=== PATIENT | female | born 1935 | race Caucasian/White ===

== ENCOUNTER 2017-11-14 09:47 | Inpatient (IN) ==
[2017-11-14] MEDS ORDERED: Diphtheria/Tetanus/Pertussis Vaccine Inj 0.5 ML Syringe IM ONE (09:54)
[2017-11-14] MEDS ORDERED: Morphine Inj 4 MG/ML Vial ONE (09:55)
[2017-11-14 10:12] LABS: Baso # (Auto) 0.1 th/mm3 (0.0-0.2); Baso % (Auto) 1.2 % (0.0-2.0); Eos # (Auto) 0.2 th/mm3 (0.0-0.4); Eos % (Auto) 3.2 % (0.0-4.0); Hematocrit 37.1 % (35.0-46.0); Hemoglobin 12.5 gm/dL (11.6-15.3); Lymph # (Auto) 1.7 th/mm3 (1.0-4.8); Lymph % (Auto) 22.8 % (9.0-44.0); Mean Corpuscular HGB Conc 33.7 % (32.0-36.0); Mean Corpuscular Hemoglobin 32.7 pg (27.0-34.0); Mean Platelet Volume 8.7 fL (7.0-11.0); Mono # (Auto) 0.5 th/mm3 (0.0-0.9); Neut % (Auto) 65.8 % (16.0-70.0); Platelet Count 214 th/mm3 (150-450); Red Blood Count 3.83 mil/mm3 (4.00-5.30); Red Cell Distribution Width 13.8 % (11.6-17.2); White Blood Count 7.5 th/mm3 (4.0-11.0)
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
[2017-11-14 10:20] LABS: Activated Partial Thrombo Time 21.6 sec (24.3-30.1); Prothrombin Time 10.4 sec (9.8-11.6)
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
[2017-11-14 10:26] LABS: Anion Gap 8 meq/L (5-15); Blood Urea Nitrogen 21 mg/dL (7-18); Calcium 8.6 mg/dL (8.5-10.1); Carbon Dioxide 26.3 meq/L (21.0-32.0); Chloride 110 meq/L (98-107); Glomerular Filtration Rate 55 mL/min (>89); Glucose,Random 122 mg/dL (74-106); Potassium 4.5 meq/L (3.5-5.1); Sodium 144 meq/L (136-145)
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
[2017-11-14] MEDS ORDERED: ceFAZolin 2 GM Premix Inj 2 GM/50 ML PIGGYBACK IV.SIG ONE (10:44)
[2017-11-14] MEDS ORDERED: Lidocaine 1%/Epinephrine 1:100,000 Inj 50 ML Vial INFILTRATN ONE (10:52)
[2017-11-14] MEDS ORDERED: Clindamycin 600 mg/NS Premix 600 MG/50 ML PIGGYBACK IV.SIG ONE (10:53)
[2017-11-14] MEDS ORDERED: Gentamicin Inj 80 MG in Sodium Chlor 0.9% Inj 100 ML IV.SIG ONE (10:53)
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
[2017-11-14] MEDS ORDERED: Morphine Inj 4 MG/ML Vial IV.PUSH PRN (11:58)
[2017-11-14] MEDS ORDERED: Bisacodyl 10 MG Supp RECTAL PRN (11:58)
[2017-11-14] MEDS ORDERED: Post-op Orders (for Pharmacy) OTHER STA (11:58)
[2017-11-14] MEDS ORDERED: Phenylephrine/NS 1000 MCG/10ML Syringe IV.PUSH ONE (12:00)
[2017-11-14] MEDS ORDERED: Lidocaine PF 1% Inj 5 ML Syringe INFILTRATN ONE (12:00)
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
[2017-11-14] MEDS ORDERED: Sugammadex Inj 200 MG/2 ML Vial IV.PUSH ONE (12:04)
[2017-11-14] MEDS ORDERED: *Meperidine Inj 25 MG/ML Vial PERIprocedural Use ONLY ONE (12:31)
[2017-11-14] MEDS ORDERED: fentaNYL Citrate Inj 100 MCG/2 ML Ampul ONE ×2 (12:34→12:35)
[2017-11-14] MEDS ORDERED: *morphine SULFATE 10 MG/ML PERIprocedure ONLY ONE (13:03)
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
[2017-11-14] MEDS: Calcium/Vitamin D 250/125 MG Tablet PO SCH ×2 (13:56→17:35)
[2017-11-14] MEDS: Pantoprazole Inj 40 MG Vial IV.PUSH SCH (13:57)
[2017-11-14] MEDS ORDERED: *Ondansetron Inj 4 MG/2 ML Vial PERIprocedural Use ONLY ONE (14:03)
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
[2017-11-14] MEDS: ceFAZolin Inj 2,000 MG in Sodium Chlor 0.9% Inj 80 ML IV.SIG SCH (20:33)
[2017-11-14] MEDS ORDERED: Docusate Sodium 100 MG Capsule PO SCH (21:00)
[2017-11-14] MEDS: Senna/Docusate Sodium 8.6/50 MG Tablet PO SCH (21:14)
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
[2017-11-15] MEDS: ceFAZolin Inj 2,000 MG in Sodium Chlor 0.9% Inj 80 ML IV.SIG SCH ×3 (03:34→20:57)
[2017-11-15] MEDS: Chlorhexidine Gluconate 2% 1 Pack (2 Cloths) TOPICAL SCH (03:35)
[2017-11-15] MEDS ORDERED: Chlorhexidine Gluconate 2% 1 Pack (2 Cloths) TOPICAL PRN (04:00)
--- NOTE | 2017-11-15 05:28 | XR ---
EXAM DATE: 11/15/2017 5:04 AM EDT AGE/SEX: 89 years / Female INDICATIONS: Short of breath. CLINICAL DATA: This is the patient's subsequent encounter. Patient reports that signs and symptoms h ave been present for 1 week and indicates a pain score of Nonresponsive. MEDICAL/SURGICAL HISTORY: Non-responsive. Non-responsive. COMPARISON: [facility] – [place] CHEST W CONTRAST, 11/14/2017. . FINDINGS: There is patchy left basilar atelectasis. Cardiomegaly and aortic calcification. Degenerative changes of the spine. CONCLUSION: Left basilar atelectasis. Electronically signed by: Konstantin Jerez MD 11/15/2017 5:26 AM EDT
[2017-11-15 08:06] LABS: Baso % (Auto) 0.2 % (0.0-2.0); Hematocrit 30.4 % (35.0-46.0); Hemoglobin 10.2 gm/dL (11.6-15.3); Lymph # (Auto) 0.7 th/mm3 (1.0-4.8); Lymph % (Auto) 4.8 % (9.0-44.0); Mean Corpuscular HGB Conc 33.6 % (32.0-36.0); Mean Corpuscular Hemoglobin 33.1 pg (27.0-34.0); Mean Corpuscular Volume 98.5 fL (80.0-100.0); Mean Platelet Volume 8.8 fL (7.0-11.0); Neut # (Auto) 12.4 th/mm3 (1.8-7.7); Platelet Count 159 th/mm3 (150-450); Red Blood Count 3.08 mil/mm3 (4.00-5.30); Red Cell Distribution Width 13.7 % (11.6-17.2); White Blood Count 14.2 th/mm3 (4.0-11.0)
--- NOTE | 2017-11-15 08:10 | P.PNOP ---
Subjective Interval history: left Distal tib/fib fxs with left 5th MT fx s/p I&D and exfix right scapula fx doing well. states pain and warmth. but controlled. Physical Exam Vital signs: Vital Signs 11/14/17 10:32 11/14/17 12:27 11/14/17 12:45 Temperature 97.7 F Pulse Rate 96 H 82 Respiratory Rate 16 16 Blood Pressure 116/77 150/67 H Pulse Oximetry 97 96 99 11/14/17 13:00 11/14/17 13:15 11/14/17 13:30 Temperature Pulse Rate 76 68 60 Respiratory Rate 16 16 16 Blood Pressure 159/67 H 147/65 H 147/68 H Pulse Oximetry 99 99 99 11/14/17 14:00 11/14/17 15:52 11/14/17 15:53 Temperature Pulse Rate 74 58 L Respiratory Rate 16 17 Blood Pressure 143/67 H Pulse Oximetry 99 98 11/14/17 19:53 11/14/17 20:00 11/14/17 22:00 Temperature 99.3 F Pulse Rate 68 74 Respiratory Rate 20 Blood Pressure 156/68 H Pulse Oximetry 98 98 11/14/17 23:00 11/15/17 00:00 11/15/17 02:00 Temperature 98.6 F Pulse Rate 56 L 58 L Respiratory Rate 17 Blood Pressure 167/72 H Pulse Oximetry 98 95 11/15/17 03:00 Temperature Pulse Rate Respiratory Rate Blood Pressure Pulse Oximetry 96 Intake & Output 11/14/17 11/15/17 11/15/17 18:59 06:59 18:59 Intake Total 1300 / 1300 100 / 100 Output Total 720 / 720 Balance 580 / 580 100 / 100 Intake: IV 100 / 100 Ancef Inj 2,000 MG In NS Inj 80 100 / 100 ML @ 200 mls/hr IV.SIG Q8H GEORGE Rx#:[id number] Oral 0 / 0 Anesthesia Amount 1300 / 1300 Output: Estimated Blood Loss 20 / 20 Urine Amount (Catheter) 700 / 700 500 500 / 500 Indwelling Urethral Catheter 200 / 200 Narrative: RUE: +sling. nvi LLE: +ankle exfix. mild bloody drainage of dressings. nvi. - Urinary Catheter Management Indwelling Urethral Catheter Cath placed during this visit: no 500 Cath placed during this visit: yes Reason for continuing: Hourly intake/output Insertion date: 11/14/17 Results - Labs CBC & Chem 7: 11/14/17 09:50 11/14/17 09:50 Laboratory Results - last 24 hr 11/14/17 11/14/17 11/14/17 09:33 09:50 09:50 WBC 7.5 RBC 3.83 L Hgb 12.5 POC Hgb (Calc) Hct 37.1 POC Hct MCV 97.0 MCH 32.7 MCHC 33.7 RDW 13.8 Plt Count 214 MPV 8.7 Neut % (Auto) 65.8 Lymph % (Auto) 22.8 [place] % (Auto) 7.0 Eos % (Auto) 3.2 Baso % (Auto) 1.2 Neut # (Auto) 5.0 Lymph # (Auto) 1.7 [place] # (Auto) 0.5 Eos # (Auto) 0.2 Baso # (Auto) 0.1 WBC Differential . Differential Comment Auto diff final PT 10.4 INR 1.0 APTT 21.6 L POC Sodium Sodium POC Potassium Potassium POC Chloride Chloride Carbon Dioxide Anion Gap POC BUN BUN Creatinine POC Creatinine Estimated GFR POC Glucose Random Glucose Calcium Nasal Screen MRSA (PCR) Serum Alcohol Blood Type Antibody Screen MTS Gel Crossmatch See Detail 11/14/17 11/14/17 11/14/17 09:50 09:50 09:50 WBC RBC Hgb POC Hgb (Calc) 11.9 Hct POC Hct 35.0 MCV MCH MCHC RDW Plt Count MPV Neut % (Auto) Lymph % (Auto) [place] % (Auto) Eos % (Auto) Baso % (Auto) Neut # (Auto) Lymph # (Auto) [place] # (Auto) Eos # (Auto) Baso # (Auto) WBC Differential Differential Comment PT INR APTT POC Sodium 141 Sodium 144 POC Potassium 4.4 Potassium 4.5 POC Chloride ND Chloride 110 H Carbon Dioxide 26.3 Anion Gap 8 POC BUN ND BUN 21 H Creatinine 0.89 POC Creatinine 0.8 Estimated GFR 55 L POC Glucose 127 H Random Glucose 122 H Calcium 8.6 Nasal Screen MRSA (PCR) Serum Alcohol Less than 3 Blood Type O Positive Antibody Screen Negative MTS Gel Crossmatch 11/14/17 11/14/17 09:50 14:45 WBC RBC Hgb POC Hgb (Calc) Hct POC Hct MCV MCH MCHC RDW Plt Count MPV Neut % (Auto) Lymph % (Auto) [place] % (Auto) Eos % (Auto) Baso % (Auto) Neut # (Auto) Lymph # (Auto) [place] # (Auto) Eos # (Auto) Baso # (Auto) WBC Differential Differential Comment PT INR APTT POC Sodium Sodium POC Potassium Potassium POC Chloride Chloride Carbon Dioxide Anion Gap POC BUN BUN Creatinine POC Creatinine Estimated GFR POC Glucose Random Glucose Calcium Nasal Screen MRSA (PCR) Not detected Serum Alcohol Blood Type Antibody Screen MTS Gel Crossmatch See Detail - Imaging Impressions Ankle CT 11/14/17 00:00 CONCLUSION: 1. External fixation of distal tibia and fibula fractures. Major fracture fragments are in near-anatomic alignment but there is irregularity, step-off, extensive comminution and a large cavity of the distal tibia articular surface. 2. Scattered gas bubbles in the anterior soft tissues and within the sinus Tarsi. Ankle X-Ray 11/14/17 00:00 CONCLUSION: Limited images as detailed above. Chest X-Ray 11/14/17 09:49 CONCLUSION: No acute cardiopulmonary process Pelvis X-Ray 11/14/17 09:49 CONCLUSION: Negative single view trauma study. Shoulder X-Ray 11/14/17 09:53 CONCLUSION: Negative single view trauma study. Tibia/Fibula X-Ray 11/14/17 09:53 CONCLUSION: 1. Multiple fibular fractures with an extensively comminuted fracture of the distal tibial metadiaphysis. 2. There also appears to be a comminuted fracture involving the fifth metatarsal recommend dedicated views of the foot for further evaluation. Abdomen/Pelvis CT 11/14/17 09:54 CONCLUSION: 1. No evidence of acute visceral injury. 2. Moderate hepatic steatosis with rounded low density lesion along the right lobe of the liver. Visualization is suboptimal secondary to motion and streak artifact. This may represent a cyst. Chest CT 11/14/17 09:54 CONCLUSION: 1. Mildly comminuted fracture of the right clavicle. 2. Nondisplaced fracture of the right posterior sixth rib. 3. No evidence of acute visceral injury. 4. Mild apparent atelectasis in the right lung with no pneumothorax. Lumbar Spine CT 11/14/17 09:54 CONCLUSION: 1. . Patient has 4 non ribbed lumbar-type vertebral bodies with complete sacralization of L5. For the purposes of this study, the sacralized vertebral body was labeled L5. 2. Multilevel degenerative disc disease with vacuum disc phenomenon at T12-L1, L1-2 and L4-5. 3. Grade 1 anterolisthesis of L4 on 5 appears to be due to facet degeneration and hypertrophy. 4. Mild to moderate spinal stenosis at L3-4 and L4-5 with no obvious central nerve root compromise. Neural foramina appear to be adequate throughout. 5. No fracture. Thoracic Spine CT 11/14/17 09:54 CONCLUSION: 1. No evidence of acute compression fracture of the thoracic spine. 2. Acute comminuted fracture involving the right scapula. 3. Mild degenerative changes throughout the thoracic spine. Cervical Spine CT 11/14/17 09:55 CONCLUSION: 1. No acute fracture or prevertebral soft tissue swelling. 2. Grade I anterolisthesis of C6 in relation to C7 and C7 in relation to T1. 3. Diffuse cervical spondylosis. 4. Moderate bilateral foraminal narrowing at C3-4, C4-C5, C5-6 and C6-7. 5. Mild spinal stenosis at C5-6. 6. Mild scoliosis of the cervical spine. 7. Rotation of C1 in relation to C2 which is likely related to the patient's positioning. Clinical correlation is recommended. Head CT 11/14/17 09:55 CONCLUSION: 1. No acute intracranial abnormality. . Chest X-Ray 11/15/17 11:17 CONCLUSION: Left basilar atelectasis. Assessment and Plan - Assessment and Plan 1) Right Scapula Fx - nonop 2) Left Distal Tibia/Fibula Fxs s/p exfix 3) Left 5th MT Fx LLE: -NWB -elevate -ice -will take dressing down tomorrow to inspect skin -npo after MN in case skin is ready for surgery. will likely not be ready till later next week -will begin pin care after remove dressing tomorrow -toradol 15mg Q8H -DVT prophylaxis RUE: -sling at all times -NWB
[2017-11-15 08:23] LABS: Carbon Dioxide 27.1 meq/L (21.0-32.0); Potassium 3.9 meq/L (3.5-5.1)
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
[2017-11-15] MEDS: Senna/Docusate Sodium 8.6/50 MG Tablet PO SCH ×2 (09:29→20:57)
[2017-11-15] MEDS ORDERED: CALCIUM CARBONATE 500 MG PO SCH (09:30)
[2017-11-15] MEDS: Calcium/Vitamin D 250/125 MG Tablet PO SCH ×3 (09:30→18:08)
[2017-11-15] MEDS: Ketorolac Inj 30 MG/ML (IVP) Vial IV.PUSH SCH ×2 (09:41→17:18)
[2017-11-15] MEDS: Pantoprazole Inj 40 MG Vial IV.PUSH SCH (12:07)
[2017-11-15] MEDS: Enoxaparin Inj 30 MG/0.3 ML Syringe SQ SCH (12:08)
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
[2017-11-16] MEDS: Ketorolac Inj 30 MG/ML (IVP) Vial IV.PUSH SCH ×3 (00:40→17:11)
[2017-11-16] MEDS: ceFAZolin Inj 2,000 MG in Sodium Chlor 0.9% Inj 80 ML IV.SIG SCH ×2 (04:22→12:30)
[2017-11-16 04:36] LABS: Baso % (Auto) 0.4 % (0.0-2.0); Calcium 8.4 mg/dL (8.5-10.1); Carbon Dioxide 30.9 meq/L (21.0-32.0); Eos # (Auto) 0.1 th/mm3 (0.0-0.4); Eos % (Auto) 0.8 % (0.0-4.0); Hematocrit 25.8 % (35.0-46.0); Hemoglobin 8.7 gm/dL (11.6-15.3); Lymph # (Auto) 1.3 th/mm3 (1.0-4.8); Lymph % (Auto) 16.3 % (9.0-44.0); Mean Corpuscular HGB Conc 33.6 % (32.0-36.0); Mean Corpuscular Hemoglobin 33.3 pg (27.0-34.0); Mean Platelet Volume 8.5 fL (7.0-11.0); Mono # (Auto) 0.5 th/mm3 (0.0-0.9); Neut # (Auto) 6.3 th/mm3 (1.8-7.7); Neut % (Auto) 76.5 % (16.0-70.0); Platelet Count 143 th/mm3 (150-450); Potassium 3.6 meq/L (3.5-5.1); Red Blood Count 2.61 mil/mm3 (4.00-5.30); Red Cell Distribution Width 13.7 % (11.6-17.2); White Blood Count 8.2 th/mm3 (4.0-11.0)
--- NOTE | 2017-11-16 06:53 | P.PNOP ---
Subjective Interval history: s/p left distal tibfib fx with exfix s/p right scapula fx patient states increased pain in ankle. states her "general health is declining ". worried about a decubitus ulcer Physical Exam Vital signs: Vital Signs 11/15/17 07:00 11/15/17 08:00 11/15/17 10:00 Temperature 98.9 F Pulse Rate 64 60 Respiratory Rate Blood Pressure 176/72 H Pulse Oximetry 98 98 11/15/17 11:33 11/15/17 11:34 11/15/17 12:00 Temperature 98.2 F Pulse Rate 51 L Respiratory Rate 20 20 Blood Pressure 143/63 H Pulse Oximetry 98 11/15/17 12:33 11/15/17 14:00 11/15/17 15:58 Temperature Pulse Rate 53 L Respiratory Rate Blood Pressure Pulse Oximetry 100 93 L 11/15/17 16:00 11/15/17 18:09 11/15/17 20:00 Temperature 98.1 F 97.7 F 99 F Pulse Rate 72 58 L 66 Respiratory Rate 15 22 Blood Pressure 137/68 176/73 H 183/72 H Pulse Oximetry 93 L 95 93 L 11/15/17 22:06 11/16/17 00:00 11/16/17 02:37 Temperature 98.2 F Pulse Rate 55 L Respiratory Rate 20 15 Blood Pressure 157/67 H Pulse Oximetry 97 94 L 11/16/17 04:00 Temperature 97.7 F Pulse Rate 52 L Respiratory Rate 20 Blood Pressure 148/67 H Pulse Oximetry 95 Intake & Output 11/15/17 11/15/17 11/16/17 06:59 18:59 06:59 Intake Total 200 / 200 1670 / 1670 320 / 320 Output Total 900 / 900 675 / 675 1000 / 1000 Balance -700 / -700 995 / 995 -680 / -680 Weight 71 kg Intake: IV 200 / 200 1100 / 1100 100 / 100 LR 1000 mL Inj 1,000 ML @ 50 1000 / 1000 mls/hr IV.CONT .Q20H GEORGE Rx#: [id number] Ancef Inj 2,000 MG In NS Inj 80 200 / 200 100 / 100 100 / 100 ML @ 200 mls/hr IV.SIG Q8H GEORGE Rx#:[id number] Oral 570 / 570 220 / 220 Output: Urine 1000 / 1000 Urine Amount (Catheter) 900 / 900 675 / 675 Indwelling Urethral Catheter 900 / 900 675 / 675 Other: Date of Last Bowel Movement 11/13/17 11/14/17 11/14/17 # Bowel Movements 0 0 Narrative: LLE: 2+ swelling of ankle. lateral incision healing well. pin sites bloody. nvi RUE: +sling. nvi - Urinary Catheter Management Indwelling Urethral Catheter Cath placed during this visit: no 500 Cath placed during this visit: yes Reason for continuing: Hourly intake/output Insertion date: 11/14/17 Results - Labs CBC & Chem 7: 11/16/17 04:01 11/16/17 04:01 Laboratory Results - last 24 hr 11/15/17 11/15/17 11/16/17 06:56 06:56 04:01 WBC 14.2 H D 8.2 RBC 3.08 L 2.61 L Hgb 10.2 L D 8.7 L Hct 30.4 L 25.8 L MCV 98.5 99.0 MCH 33.1 33.3 MCHC 33.6 33.6 RDW 13.7 13.7 Plt Count 159 143 L MPV 8.8 8.5 Neut % (Auto) 88.0 H 76.5 H Lymph % (Auto) 4.8 L 16.3 [place] % (Auto) 7.0 6.0 Eos % (Auto) 0.0 0.8 Baso % (Auto) 0.2 0.4 Neut # (Auto) 12.4 H 6.3 Lymph # (Auto) 0.7 L 1.3 [place] # (Auto) 1.0 H 0.5 Eos # (Auto) 0.0 0.1 Baso # (Auto) 0.0 0.0 WBC Differential . . Differential Comment Auto diff final Auto diff final Sodium 143 Potassium 3.9 Chloride 109 H Carbon Dioxide 27.1 Anion Gap 7 BUN 20 H Creatinine 0.88 Estimated GFR 61 L Random Glucose 115 H Lactic Acid Calcium 8.0 L 11/16/17 11/16/17 04:01 04:01 WBC RBC Hgb Hct MCV MCH MCHC RDW Plt Count MPV Neut % (Auto) Lymph % (Auto) [place] % (Auto) Eos % (Auto) Baso % (Auto) Neut # (Auto) Lymph # (Auto) [place] # (Auto) Eos # (Auto) Baso # (Auto) WBC Differential Differential Comment Sodium 144 Potassium 3.6 Chloride 109 H Carbon Dioxide 30.9 Anion Gap 4 L BUN 18 Creatinine 0.85 Estimated GFR 64 L Random Glucose 90 Lactic Acid 1.1 Calcium 8.4 L - Imaging Impressions Foot X-Ray 11/15/17 00:00 CONCLUSION: Interim external fixation of lateral Lisfranc fracturing as above. No acute complication demonstrated. Assessment and Plan - Assessment and Plan 1) Right Scapula Fx - nonop 2) Left Distal Tibia/Fibula Fxs s/p exfix 3) Left 5th MT Fx LLE: -NWB -elevate -ice -will take dressing down tomorrow to inspect skin -restart diet -patient not ready for surgery at this time. swelling too great and skin not healthy enough. will re-eval next week but anticipate 1-2 weeks before skin is ready. -toradol 15mg Q8H -DVT prophylaxis RUE: -sling at all times -NWB
[2017-11-16] MEDS: Chlorhexidine Gluconate 2% 1 Pack (2 Cloths) TOPICAL SCH (07:18)
[2017-11-16] MEDS: Calcium/Vitamin D 250/125 MG Tablet PO SCH ×3 (09:24→17:11)
[2017-11-16] MEDS: Senna/Docusate Sodium 8.6/50 MG Tablet PO SCH ×2 (09:25→21:00)
[2017-11-16] MEDS: CALCIUM 500 MG PO SCH (09:27)
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
[2017-11-16] MEDS: Enoxaparin Inj 30 MG/0.3 ML Syringe SQ SCH (12:30)
[2017-11-16] MEDS: Pantoprazole Inj 40 MG Vial IV.PUSH SCH (12:30)
[2017-11-17] MEDS: Ketorolac Inj 30 MG/ML (IVP) Vial IV.PUSH SCH (00:07)
[2017-11-17 06:20] LABS: Hematocrit 26.8 % (35.0-46.0); Hemoglobin 9.4 gm/dL (11.6-15.3)
--- NOTE | 2017-11-17 07:28 | P.PNOP ---
Subjective Interval history: s/p exfix left ankle right scapula fx no changes. doing well Physical Exam Vital signs: Vital Signs 11/16/17 08:00 11/16/17 09:59 11/16/17 10:00 Temperature 98.5 F Pulse Rate 67 Respiratory Rate 18 16 16 Blood Pressure Pulse Oximetry 93 L 11/16/17 10:30 11/16/17 12:00 11/16/17 17:41 Temperature 97.2 F L Pulse Rate 65 Respiratory Rate 16 20 18 Blood Pressure 157/69 H Pulse Oximetry 95 11/16/17 17:58 11/16/17 20:00 11/17/17 00:00 Temperature 99 F 98.9 F Pulse Rate 63 64 Respiratory Rate 16 17 Blood Pressure 141/66 H 145/67 H Pulse Oximetry 95 93 L 94 L 11/17/17 04:00 Temperature 98.3 F Pulse Rate 69 Respiratory Rate 18 Blood Pressure 162/72 H Pulse Oximetry 95 Intake & Output 11/16/17 11/17/17 11/17/17 18:59 06:59 18:59 Intake Total 1100 / 1100 Balance 1100 / 1100 Intake: IV 1100 / 1100 LR 1000 mL Inj 1,000 ML @ 50 1000 / 1000 mls/hr IV.CONT .Q20H [facility]GE Rx#: [id number] Ancef Inj 2,000 MG In NS Inj 80 100 / 100 ML @ 200 mls/hr IV.SIG Q8H GEORGE Rx#:[id number] Other: Date of Last Bowel Movement 11/14/17 Narrative: LLE: +exfix. pin sites celan. 2+swelling. nvi - Urinary Catheter Management Indwelling Urethral Catheter Cath placed during this visit: no 500 Cath placed during this visit: yes Reason for continuing: Hourly intake/output Insertion date: 11/14/17 Results - Labs CBC & Chem 7: 11/17/17 04:33 11/16/17 04:01 Laboratory Results - last 24 hr 11/14/17 11/14/17 11/17/17 09:33 09:50 04:33 Hgb 9.4 L Hct 26.8 L MTS Gel Crossmatch See Detail See Detail Assessment and Plan - Assessment and Plan 1) Right Scapula Fx - nonop 2) Left Distal Tibia/Fibula Fxs s/p exfix 3) Left 5th MT Fx LLE: -NWB -elevate -ice -will take dressing down tomorrow to inspect skin -restart diet -patient not ready for surgery at this time. swelling too great and skin not healthy enough. will re-eval next week but anticipate 1-2 weeks before skin is ready. -toradol 15mg Q8H -DVT prophylaxis RUE: -sling at all times -NWB
[2017-11-17] MEDS: Chlorhexidine Gluconate 2% 1 Pack (2 Cloths) TOPICAL SCH (09:05)
[2017-11-17] MEDS: Calcium/Vitamin D 250/125 MG Tablet PO SCH ×3 (09:18→21:12)
[2017-11-17] MEDS: Senna/Docusate Sodium 8.6/50 MG Tablet PO SCH ×2 (09:19→21:12)
[2017-11-17] MEDS: Meloxicam 7.5 MG Tablet PO SCH (09:19)
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
[2017-11-17] MEDS: CALCIUM 500 MG PO SCH (16:45)
[2017-11-17] MEDS: Enoxaparin Inj 30 MG/0.3 ML Syringe SQ SCH (16:47)
[2017-11-17] MEDS: Pantoprazole Inj 40 MG Vial IV.PUSH SCH (16:48)
[2017-11-18] MEDS: Chlorhexidine Gluconate 2% 1 Pack (2 Cloths) TOPICAL SCH (07:05)
[2017-11-18] MEDS: Calcium/Vitamin D 250/125 MG Tablet PO SCH ×3 (08:51→17:34)
[2017-11-18] MEDS: Senna/Docusate Sodium 8.6/50 MG Tablet PO SCH ×2 (08:52→21:41)
[2017-11-18] MEDS: Meloxicam 7.5 MG Tablet PO SCH (08:52)
--- NOTE | 2017-11-18 09:50 | P.PNOP ---
Subjective Interval history: Patient resting comfortably this morning. Family at bedside. Denies any significant change in pain or symptoms. Physical Exam Vital signs: Vital Signs 11/17/17 10:00 11/17/17 10:27 11/17/17 12:00 Temperature 97.9 F Pulse Rate 73 73 72 Respiratory Rate 18 Blood Pressure 166/76 H 129/60 Pulse Oximetry 93 L 11/17/17 14:00 11/17/17 16:00 11/17/17 18:00 Temperature Pulse Rate 75 73 75 Respiratory Rate Blood Pressure Pulse Oximetry 11/17/17 19:53 11/17/17 20:00 11/17/17 22:00 Temperature 99.2 F Pulse Rate 65 62 Respiratory Rate 18 18 Blood Pressure 123/59 L Pulse Oximetry 95 95 11/18/17 00:00 11/18/17 00:22 11/18/17 02:00 Temperature 98.4 F Pulse Rate 60 73 Respiratory Rate 18 17 18 Blood Pressure 126/76 Pulse Oximetry 96 11/18/17 03:54 11/18/17 04:23 11/18/17 08:00 Temperature 98.4 F 98.3 F Pulse Rate 81 77 70 Respiratory Rate 17 16 Blood Pressure 165/71 H 196/77 H Pulse Oximetry 94 L 94 L Intake & Output 11/17/17 11/18/17 11/18/17 18:59 06:59 18:59 Intake Total 240 / 240 480 / 480 Balance 240 / 240 480 / 480 Weight 71 kg 71 kg Intake: Oral 240 / 240 480 / 480 Other: # Voids 2 2 Date of Last Bowel Movement 11/14/17 11/16/17 Weight On Admission 71 kg Narrative: Awake, alert, no acute distress Left lower extremity: External fixator in place over lower ankle and leg. Moderate edema and ecchymosis throughout. Patient does wiggle toes although unable to perform full neuro exam at toes as a result of pain. Brisk cap refill. Negative Homans. - Urinary Catheter Management Indwelling Urethral Catheter Cath placed during this visit: no 500 Cath placed during this visit: yes Reason for continuing: Hourly intake/output Insertion date: 11/14/17 Results - Labs CBC & Chem 7: 11/17/17 04:33 11/16/17 04:01 Assessment and Plan - Assessment and Plan 1) Right Scapula Fx - nonop 2) Left Distal Tibia/Fibula Fxs s/p exfix 3) Left 5th MT Fx LLE: -NWB -elevate -ice -will take dressing down tomorrow to inspect skin -restart diet -patient not ready for surgery at this time. swelling too great and skin not healthy enough. will re-eval next week but anticipate 1-2 weeks before skin is ready. -toradol 15mg Q8H -DVT prophylaxis RUE: -sling at all times -NWB
[2017-11-18] MEDS: CALCIUM 500 MG PO SCH (13:36)
[2017-11-18] MEDS: Enoxaparin Inj 30 MG/0.3 ML Syringe SQ SCH ×2 (13:37→17:39)
[2017-11-18] MEDS: Pantoprazole Inj 40 MG Vial IV.PUSH SCH (16:55)
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
--- NOTE | 2017-11-19 06:33 | P.PNOP ---
Subjective Interval history: s/p exfix left ankle s/p left 5th MT fx s/p right scapula doing well. no changes Physical Exam Vital signs: Vital Signs 11/18/17 08:00 11/18/17 09:00 11/18/17 12:00 Temperature 98.3 F 98.1 F Pulse Rate 70 82 Respiratory Rate 16 18 Blood Pressure 196/77 H 167/75 H Pulse Oximetry 94 L 97 97 11/18/17 13:00 11/18/17 16:00 11/18/17 17:00 Temperature 97.9 F Pulse Rate 89 Respiratory Rate 16 Blood Pressure 159/81 H Pulse Oximetry 95 95 93 L 11/18/17 20:00 11/18/17 20:01 11/18/17 20:03 Temperature 98.4 F Pulse Rate 72 70 Respiratory Rate 18 Blood Pressure 153/69 H Pulse Oximetry 95 95 11/18/17 22:00 11/18/17 23:52 11/19/17 00:00 Temperature 98.8 F Pulse Rate 71 83 Respiratory Rate 18 17 17 Blood Pressure 154/69 H Pulse Oximetry 96 11/19/17 02:00 11/19/17 03:25 11/19/17 04:00 Temperature 98.5 F Pulse Rate 66 90 Respiratory Rate 17 17 Blood Pressure 138/74 Pulse Oximetry 94 L Intake & Output 11/18/17 11/18/17 11/19/17 06:59 18:59 06:59 Intake Total 480 / 480 300 / 300 Balance 480 / 480 300 / 300 Weight 71 kg 71 kg Intake: Oral 480 / 480 300 / 300 Other: # Voids 2 3 Date of Last Bowel Movement 11/16/17 11/16/17 11/16/17 Weight On Admission 71 kg Narrative: LLE: +exfix. 2+ swelling. nvi RUE: +sling - Urinary Catheter Management Indwelling Urethral Catheter Cath placed during this visit: no 500 Cath placed during this visit: yes, but has since been removed by the nurse Reason for continuing: Hourly intake/output Insertion date: 11/14/17 Removal date: 11/17/17 Results - Labs CBC & Chem 7: 11/17/17 04:33 11/16/17 04:01 Assessment and Plan - Assessment and Plan 1) Right Scapula Fx - nonop 2) Left Distal Tibia/Fibula Fxs s/p exfix 3) Left 5th MT Fx LLE: -NWB -elevate -ice -patient not ready for surgery at this time. swelling too great and skin not healthy enough. -swelling improving. will re-check each day for swellling possibly later this week if swelling keeps improving -DVT prophylaxis RUE: -sling at all times -NWB
[2017-11-19] MEDS: Senna/Docusate Sodium 8.6/50 MG Tablet PO SCH ×2 (08:56→20:40)
[2017-11-19] MEDS: Calcium/Vitamin D 250/125 MG Tablet PO SCH ×3 (08:56→18:19)
[2017-11-19] MEDS: Famotidine 20 MG Tablet PO SCH ×2 (08:56→20:38)
[2017-11-19] MEDS: Meloxicam 7.5 MG Tablet PO SCH (08:57)
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
[2017-11-19] MEDS ORDERED: Sod Phosphate/Sod Biphosphate (Adult) Enema 133 ML Bottle RECTAL ONE (11:58)
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
[2017-11-19] MEDS: Enoxaparin Inj 30 MG/0.3 ML Syringe SQ SCH (18:20)
[2017-11-20] MEDS: CALCIUM 500 MG PO SCH ×2 (01:13→08:44)
[2017-11-20 05:55] LABS: Calcium 8.8 mg/dL (8.5-10.1); Carbon Dioxide 30.5 meq/L (21.0-32.0); Potassium 3.8 meq/L (3.5-5.1)
[2017-11-20 05:58] LABS: Baso % (Auto) 0.5 % (0.0-2.0); Eos # (Auto) 0.2 th/mm3 (0.0-0.4); Eos % (Auto) 3.5 % (0.0-4.0); Hematocrit 31.4 % (35.0-46.0); Hemoglobin 10.9 gm/dL (11.6-15.3); Lymph # (Auto) 1.2 th/mm3 (1.0-4.8); Lymph % (Auto) 17.3 % (9.0-44.0); Mean Corpuscular HGB Conc 34.6 % (32.0-36.0); Mean Corpuscular Volume 98.2 fL (80.0-100.0); Mono # (Auto) 0.6 th/mm3 (0.0-0.9); Mono % (Auto) 8.5 % (0.0-8.0); Neut # (Auto) 4.8 th/mm3 (1.8-7.7); Neut % (Auto) 70.2 % (16.0-70.0); Platelet Count 219 th/mm3 (150-450); Red Blood Count 3.19 mil/mm3 (4.00-5.30); White Blood Count 6.8 th/mm3 (4.0-11.0)
[2017-11-20] MEDS: Famotidine 20 MG Tablet PO SCH ×2 (08:42→21:22)
[2017-11-20] MEDS: Senna/Docusate Sodium 8.6/50 MG Tablet PO SCH ×2 (08:42→21:23)
[2017-11-20] MEDS: Calcium/Vitamin D 250/125 MG Tablet PO SCH ×3 (08:43→18:30)
[2017-11-20] MEDS: Meloxicam 7.5 MG Tablet PO SCH (08:43)
--- NOTE | 2017-11-20 09:41 | P.PNOP ---
Subjective Interval history: Pain is controlled. She continues to elevate her left lower extremity and has no other complaints Physical Exam Vital signs: Vital Signs 11/19/17 12:00 11/19/17 17:00 11/19/17 17:50 Temperature 98.2 F 98.4 F Pulse Rate 73 16 L Respiratory Rate 16 16 Blood Pressure 172/81 H 187/88 H Pulse Oximetry 95 96 95 11/19/17 20:00 11/20/17 00:00 11/20/17 04:00 Temperature 98.9 F 98.2 F 98.8 F Pulse Rate 70 68 72 Respiratory Rate 16 19 19 Blood Pressure 158/68 H 161/72 H 158/75 H Pulse Oximetry 96 96 98 11/20/17 08:00 Temperature 99.4 F Pulse Rate 88 Respiratory Rate 16 Blood Pressure 158/70 H Pulse Oximetry 93 L Intake & Output 11/19/17 11/20/17 11/20/17 18:59 06:59 18:59 Intake Total 420 / 420 Output Total 700 / 700 1350 / 1350 Balance -700 / -700 -930 / -930 Weight 72.3 kg Intake: Oral 420 / 420 Output: Urine 700 / 700 1350 / 1350 Other: Date of Last Bowel Movement 11/19/17 11/20/17 # Bowel Movements 1 Narrative: Left lower extremity: No pain with hip or knee range of motion. Examination of the ankle reveals 2 open lacerations that are well approximated and healing well. There is no signs of necrosis or erythema surrounding them. External fixator is in place with delta frame. Pin sites are clean dry and intact. She has intact sensation distally on her toes with good capillary refills. - Urinary Catheter Management Indwelling Urethral Catheter Cath placed during this visit: no 500 Cath placed during this visit: yes, but has since been removed by the nurse Reason for continuing: Hourly intake/output Insertion date: 11/14/17 Removal date: 11/17/17 Results - Labs CBC & Chem 7: 11/20/17 05:01 11/20/17 05:01 Laboratory Results - last 24 hr 11/20/17 11/20/17 05:01 05:01 WBC 6.8 RBC 3.19 L Hgb 10.9 L Hct 31.4 L MCV 98.2 MCH 34.0 MCHC 34.6 RDW 14.0 Plt Count 219 D MPV 8.0 Neut % (Auto) 70.2 H Lymph % (Auto) 17.3 Evans % (Auto) 8.5 H Eos % (Auto) 3.5 Baso % (Auto) 0.5 Neut # (Auto) 4.8 Lymph # (Auto) 1.2 Evans # (Auto) 0.6 Eos # (Auto) 0.2 Baso # (Auto) 0.0 WBC Differential . Differential Comment Auto diff final Sodium 144 Potassium 3.8 Chloride 107 Carbon Dioxide 30.5 Anion Gap 7 BUN 14 Creatinine 0.72 Estimated GFR 77 L Random Glucose 95 Calcium 8.8 Assessment and Plan - Assessment and Plan 1) Right Scapula Fx - nonop 2) Left Distal Tibia/Fibula Fxs s/p exfix 3) Left 5th MT Fx LLE: -NWB -elevate -ice -patient not ready for surgery at this time. swelling has improved and and lacerations are continuing to healing well -We will continue to re-check each day for swelling laceration healing, possibly later this week if swelling keeps improving -DVT prophylaxis RUE: -sling at all times -NWB
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
[2017-11-20] MEDS: Lidocaine 5% Patch T-DERMAL SCH (13:51)
[2017-11-20] MEDS: Gabapentin 300 MG Capsule PO SCH ×2 (13:51→18:30)
[2017-11-20] MEDS: Enoxaparin Inj 30 MG/0.3 ML Syringe SQ SCH (18:51)
--- NOTE | 2017-11-21 06:52 | P.PNOP ---
Subjective Interval history: Daria is awake and alert. Pain is improving. She has been trying to keep her foot elevated and iced. Physical Exam Vital signs: Vital Signs 11/20/17 08:00 11/20/17 12:00 11/20/17 17:00 Temperature 99.4 F 99.2 F 98.6 F Pulse Rate 88 88 79 Respiratory Rate 16 20 Blood Pressure 158/70 H 146/69 H 144/75 H Pulse Oximetry 93 L 99 11/20/17 17:30 11/20/17 20:00 11/21/17 00:00 Temperature 99.3 F 97.8 F 97.8 F Pulse Rate 91 H 63 60 Respiratory Rate 22 20 18 Blood Pressure 112/62 163/72 H 160/71 H Pulse Oximetry 96 95 95 Intake & Output 11/20/17 11/20/17 11/21/17 06:59 18:59 06:59 Intake Total 420 / 420 Output Total 1350 / 1350 380 / 380 Balance -930 / -930 -380 / -380 Weight 72.3 kg Intake: Oral 420 / 420 Output: Urine 1350 / 1350 380 / 380 Other: Date of Last Bowel Movement 11/19/17 11/20/17 11/20/17 # Incontinent Bowel Movements 1 Narrative: Daria is awake and alert. Examination of left leg reveals external fixator pin sites are clean. Traumatic lacerations are well aligned with skin approximated. Moderate swelling of left foot and ankle. - Urinary Catheter Management Indwelling Urethral Catheter Cath placed during this visit: no 500 Cath placed during this visit: yes, but has since been removed by the nurse Reason for continuing: Hourly intake/output Insertion date: 11/14/17 Removal date: 11/17/17 Results - Labs CBC & Chem 7: 11/20/17 05:01 11/20/17 05:01 Assessment and Plan - Assessment and Plan 1) Right Scapula Fx - nonop 2) Left Distal Tibia/Fibula Fxs s/p exfix 3) Left 5th MT Fx LLE: -NWB -elevate -ice -patient not ready for surgery at this time. swelling has improved and and lacerations are continuing to healing well -We will continue to re-check each day for swelling laceration healing, possibly later this week if swelling keeps improving -DVT prophylaxis RUE: -sling at all times -NWB
[2017-11-21] MEDS: Famotidine 20 MG Tablet PO SCH ×2 (09:35→21:20)
[2017-11-21] MEDS: Senna/Docusate Sodium 8.6/50 MG Tablet PO SCH ×2 (09:36→21:20)
[2017-11-21] MEDS: Calcium/Vitamin D 250/125 MG Tablet PO SCH ×4 (10:30→17:06)
[2017-11-21] MEDS: Meloxicam 7.5 MG Tablet PO SCH (10:32)
[2017-11-21] MEDS: Gabapentin 300 MG Capsule PO SCH ×3 (10:32→17:06)
[2017-11-21] MEDS: CALCIUM 500 MG PO SCH (10:33)
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
[2017-11-21] MEDS: Lidocaine 5% Patch T-DERMAL SCH (14:19)
[2017-11-21] MEDS: Enoxaparin Inj 30 MG/0.3 ML Syringe SQ SCH (17:11)
[2017-11-21] MEDS ORDERED: Enoxaparin Inj 40 MG/0.4 ML Syringe SQ SCH (18:00)
--- NOTE | 2017-11-22 06:55 | P.PNOP ---
Subjective Interval history: s/p exfix left distal tibia s/p left 5MT fx s/p let cuboid fx s/p right scapula fx no changes Physical Exam Vital signs: Vital Signs 11/21/17 08:00 11/21/17 12:00 11/21/17 16:00 Temperature 98.1 F 98.1 F 97.6 F Pulse Rate 61 92 H 84 Respiratory Rate 18 Blood Pressure 156/64 H 111/66 143/69 H Pulse Oximetry 94 L 97 96 11/21/17 20:00 11/22/17 00:00 11/22/17 04:00 Temperature 98.7 F 98.3 F 98.0 F Pulse Rate 78 68 72 Respiratory Rate 18 18 Blood Pressure 116/60 123/70 154/71 H Pulse Oximetry 94 L 95 94 L Intake & Output 11/21/17 11/21/17 11/22/17 06:59 18:59 06:59 Intake Total 240 / 240 480 / 480 Output Total 700 / 700 1200 / 1200 450 / 450 Balance -460 / -460 -720 / -720 -450 / -450 Weight 71.9 kg Intake: Oral 240 / 240 480 / 480 Output: Urine 700 / 700 1200 / 1200 450 / 450 Other: Date of Last Bowel Movement 11/20/17 11/20/17 # Bowel Movements 1 Narrative: LLE: +exfix. pin sites clean and dry. intact. nvi. moderate swelling. - Urinary Catheter Management Indwelling Urethral Catheter Cath placed during this visit: no 500 Cath placed during this visit: yes, but has since been removed by the nurse Reason for continuing: Hourly intake/output Insertion date: 11/14/17 Removal date: 11/17/17 Results - Labs CBC & Chem 7: 11/20/17 05:01 11/20/17 05:01 Assessment and Plan - Assessment and Plan 1) Right Scapula Fx - nonop 2) Left Distal Tibia/Fibula Fxs s/p exfix 3) Left 5th MT Fx LLE: -NWB -elevate -ice -will tentatively plan for surgery tomorrow. however, it is unlikely -npo after MN -hold lovenox RUE: -sling at all times -NWB
[2017-11-22] MEDS: Gabapentin 300 MG Capsule PO SCH ×3 (10:18→18:00)
[2017-11-22] MEDS: Senna/Docusate Sodium 8.6/50 MG Tablet PO SCH ×2 (10:18→22:23)
[2017-11-22] MEDS: Meloxicam 7.5 MG Tablet PO SCH (10:19)
[2017-11-22] MEDS: Famotidine 20 MG Tablet PO SCH ×2 (10:19→22:19)
[2017-11-22] MEDS: Calcium/Vitamin D 250/125 MG Tablet PO SCH ×3 (10:19→18:00)
[2017-11-22] MEDS: Lidocaine 5% Patch T-DERMAL SCH (10:21)
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
[2017-11-22] MEDS: CALCIUM 500 MG PO SCH (13:04)
[2017-11-23] MEDS ORDERED: Metoprolol Tartrate 25 MG Tablet PO SCH (03:00)
[2017-11-23] MEDS ORDERED: Chlorhexidine Gluconate 2% 1 Pack (2 Cloths) TOPICAL SCH (03:00)
[2017-11-23] MEDS ORDERED: Sodium Chlor 0.9% Inj 500 ML IV.SIG SCH (03:00)
--- NOTE | 2017-11-23 06:15 | P.PNOP ---
Subjective Interval history: s/p exfix left ankle s/p left cuboid fx s/p left 5th MT fx s/p right scapula fx no changes. doing well Physical Exam Vital signs: Vital Signs 11/22/17 08:00 11/22/17 12:00 11/22/17 16:00 Temperature 98.3 F 97.9 F 98.0 F Pulse Rate 67 113 H 77 Respiratory Rate 12 12 12 Blood Pressure 155/73 H 120/68 142/70 H Pulse Oximetry 96 95 94 L 11/22/17 20:00 11/23/17 00:00 Temperature 97.3 F L 97.8 F Pulse Rate 80 74 Respiratory Rate 15 20 Blood Pressure 125/65 104/57 L Pulse Oximetry 97 93 L Intake & Output 11/22/17 11/22/17 11/23/17 06:59 18:59 06:59 Output Total 450 / 450 Balance -450 / -450 Weight 71.9 kg 71.9 kg Output: Urine 450 / 450 Other: # Voids 1 Date of Last Bowel Movement 11/20/17 11/22/17 11/22/17 Narrative: LLE: 2+ swelling of lower ankle. incisions healing well. pin sites clean and dry. nvi RUE: +sling. nvi - Urinary Catheter Management Indwelling Urethral Catheter Cath placed during this visit: no 500 Cath placed during this visit: yes, but has since been removed by the nurse Reason for continuing: Hourly intake/output Insertion date: 11/14/17 Removal date: 11/17/17 Results - Labs CBC & Chem 7: 11/20/17 05:01 11/20/17 05:01 Assessment and Plan - Assessment and Plan 1) Right Scapula Fx - nonop 2) Left Distal Tibia/Fibula Fxs s/p exfix 3) Left 5th MT Fx 4) Left Cuboid Fx LLE: -NWB -elevate -ice -still not ready for surgery -restart diet -lovenox daily -will re-assess early next week for surgery. RUE: -sling at all times -NWB
[2017-11-23] MEDS: Famotidine 20 MG Tablet PO SCH ×2 (09:18→21:39)
[2017-11-23] MEDS: Calcium/Vitamin D 250/125 MG Tablet PO SCH ×3 (09:18→18:33)
[2017-11-23] MEDS: Gabapentin 300 MG Capsule PO SCH ×3 (09:18→18:33)
[2017-11-23] MEDS: Meloxicam 7.5 MG Tablet PO SCH (09:19)
[2017-11-23] MEDS: CALCIUM 500 MG PO SCH (09:20)
[2017-11-23] MEDS: Senna/Docusate Sodium 8.6/50 MG Tablet PO SCH ×2 (09:21→21:39)
[2017-11-23] MEDS: Lidocaine 5% Patch T-DERMAL SCH (09:22)
[2017-11-23] MEDS: Enoxaparin Inj 40 MG/0.4 ML Syringe SQ SCH (09:22)
--- NOTE | 2017-11-23 12:46 | ECG ---
Date Performed: 11/23/2017 Time Performed: 08:26:19 PTAGE: 82 years EKG: Sinus rhythm T-WAVES INFERIORALLY, CANNOT EXCLUDE INFERIOR INFARCT, AGE UNDETERMINED ABNORMAL R-WAVE PROGRESSION CANNOT EXCLUDE ANTERIOR INFARCT BORDERLINE ECG NO PREVIOUS TRACING DOCTOR: Teodoro Pickard Interpretating Date/Time 11/23/2017 12:44:07
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
[2017-11-24] MEDS: Gabapentin 300 MG Capsule PO SCH ×3 (10:26→18:04)
[2017-11-24] MEDS: Meloxicam 7.5 MG Tablet PO SCH (10:26)
[2017-11-24] MEDS: Calcium/Vitamin D 250/125 MG Tablet PO SCH ×3 (10:27→18:04)
[2017-11-24] MEDS: Enoxaparin Inj 40 MG/0.4 ML Syringe SQ SCH (10:27)
[2017-11-24] MEDS: Famotidine 20 MG Tablet PO SCH ×2 (10:27→21:46)
[2017-11-24] MEDS: Senna/Docusate Sodium 8.6/50 MG Tablet PO SCH ×2 (10:27→22:12)
[2017-11-24] MEDS: Lidocaine 5% Patch T-DERMAL SCH (10:29)
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
[2017-11-24] MEDS: CALCIUM 500 MG PO SCH (12:45)
[2017-11-25] MEDS: Meloxicam 7.5 MG Tablet PO SCH (08:44)
[2017-11-25] MEDS: Senna/Docusate Sodium 8.6/50 MG Tablet PO SCH ×2 (08:44→23:33)
[2017-11-25] MEDS: Calcium/Vitamin D 250/125 MG Tablet PO SCH ×3 (08:45→17:56)
[2017-11-25] MEDS: Famotidine 20 MG Tablet PO SCH ×2 (08:45→21:44)
[2017-11-25] MEDS: Gabapentin 300 MG Capsule PO SCH ×3 (08:45→17:56)
[2017-11-25] MEDS: Enoxaparin Inj 40 MG/0.4 ML Syringe SQ SCH (08:46)
[2017-11-25] MEDS: Lidocaine 5% Patch T-DERMAL SCH (08:47)
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
[2017-11-25] MEDS: CALCIUM 500 MG PO SCH (16:16)
[2017-11-26] MEDS: Acetaminophen 325 MG Tablet PO PRN (03:32)
--- NOTE | 2017-11-26 06:42 | P.PNOP ---
Subjective Interval history: Pain is controlled. Sling is repositioned on right upper extremity. She is continue to keep her leg elevated. She states that she is "at wits end." Patient's and son are standing bedside Physical Exam Vital signs: Vital Signs 11/25/17 08:00 11/25/17 12:00 11/25/17 16:00 Temperature 97.5 F L 98.2 F 98.6 F Pulse Rate 62 75 82 Respiratory Rate 16 16 16 Blood Pressure 132/62 145/69 H 136/63 Pulse Oximetry 97 99 95 11/25/17 20:00 11/26/17 00:00 11/26/17 04:00 Temperature 98.4 F 98.2 F 98.2 F Pulse Rate 71 67 66 Respiratory Rate 17 17 17 Blood Pressure 146/67 H 129/70 127/61 Pulse Oximetry 97 97 95 Intake & Output 11/25/17 11/25/17 11/26/17 06:59 18:59 06:59 Output Total 510 / 510 Balance -510 / -510 Weight 71.9 kg 71.9 kg Output: Urine 510 / 510 Other: Date of Last Bowel Movement 11/24/17 11/24/17 Narrative: Right upper extremity: Pain with movement of shoulder. Sling is repositioned and is in good position. She has no pain with elbow or wrist range of motion. Distally intact sensation over the radial ulnar and median nerve distributions with good capillary refills. She is able to fully extend her fingers and make a fist Left lower extremity: No pain with hip or knee range of motion. External fixator is in place with a delta frame. Open lacerations are well approximated and are continuing to heal in appropriately. There is mild darkening distally to the incision over the fifth metatarsal. Pin sites are clean and dry. No signs of infection. Continues to have swelling of +2 over the distal tibia. She has intact sensation all toes with good capillary refills and distal pulses - Urinary Catheter Management Indwelling Urethral Catheter Cath placed during this visit: no 500 Cath placed during this visit: yes, but has since been removed by the nurse Reason for continuing: Hourly intake/output Insertion date: 11/14/17 Removal date: 11/17/17 Results - Labs CBC & Chem 7: 11/20/17 05:01 11/20/17 05:01 Assessment and Plan - Assessment and Plan 1) Right Scapula Fx - nonop 2) Left Distal Tibia/Fibula Fxs s/p exfix 3) Left 5th MT Fx 4) Left Cuboid Fx LLE: -NWB -elevate -ice -still not ready for surgery due to swelling over distal tibia and over the foot -restart diet -Hold Lovenox -will re-assess for possible surgery tomorrow RUE: -sling at all times -NWB Patient states that she is "at wits end." She does not want to stay in the hospital bed anymore and would like to go home. She states that if she goes home she will stop eating and "hasten her demise." She is told that the injury to her ankle and foot continue to have swelling and iis unsafe to proceed with final fixation at this time. If surgery was performed at this point, a wound complication would be eminent. As swelling continues to improve, and continued wound healing proceeds, we will be able to perform surgery safely. We will consult psychiatry due to depression and failure to thrive. We will see her tomorrow and continue to evaluate her left lower extremity. I will make her n.p.o. after midnight.
[2017-11-26] MEDS: Famotidine 20 MG Tablet PO SCH ×2 (08:53→22:02)
[2017-11-26] MEDS: Calcium/Vitamin D 250/125 MG Tablet PO SCH ×3 (08:53→17:33)
[2017-11-26] MEDS: Meloxicam 7.5 MG Tablet PO SCH (08:53)
[2017-11-26] MEDS: Gabapentin 300 MG Capsule PO SCH ×3 (08:53→17:33)
[2017-11-26] MEDS: Senna/Docusate Sodium 8.6/50 MG Tablet PO SCH ×2 (08:53→22:02)
[2017-11-26] MEDS: Lidocaine 5% Patch T-DERMAL SCH (08:55)
[2017-11-26] MEDS: CALCIUM 500 MG PO SCH (09:56)
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
[2017-11-27] MEDS ORDERED: Chlorhexidine Gluconate 2% 1 Pack (2 Cloths) TOPICAL SCH (04:15)
[2017-11-27] MEDS ORDERED: Sodium Chlor 0.9% Inj 500 ML IV.SIG SCH (05:00)
--- NOTE | 2017-11-27 06:59 | P.PNOP ---
Subjective Interval history: s/p left ankle exfix s/p right scapula fx doing well. improving. patient reports better outlook on things Physical Exam Vital signs: Vital Signs 11/26/17 08:00 11/26/17 12:00 11/26/17 16:00 Temperature 97.6 F 97.7 F 97.7 F Pulse Rate 57 L 72 68 Respiratory Rate 18 18 18 Blood Pressure 147/70 H 110/57 L 126/58 L Pulse Oximetry 95 94 L 97 11/26/17 19:52 11/26/17 20:00 11/27/17 00:13 Temperature 98.0 F Pulse Rate 77 70 73 Respiratory Rate 18 Blood Pressure 103/76 Pulse Oximetry 94 L 11/27/17 01:56 11/27/17 04:00 11/27/17 04:20 Temperature 97.5 F L Pulse Rate 63 65 Respiratory Rate 18 17 Blood Pressure 127/62 Pulse Oximetry 97 Intake & Output 11/26/17 11/26/17 11/27/17 06:59 18:59 06:59 Intake Total 240 / 240 Output Total 430 / 430 600 / 600 Balance -430 / -430 240 / 240 -600 / -600 Weight 71.9 kg 71 kg Intake: Oral 240 / 240 Output: Urine 430 / 430 600 / 600 Other: Date of Last Bowel Movement 11/25/17 11/25/17 Narrative: LLE: +exfix. pin sites clean. no drainage. nvi. moderate swelling. - Urinary Catheter Management Indwelling Urethral Catheter Cath placed during this visit: no 500 Cath placed during this visit: yes, but has since been removed by the nurse Reason for continuing: Hourly intake/output Insertion date: 11/14/17 Removal date: 11/17/17 Results - Labs CBC & Chem 7: 11/20/17 05:01 11/20/17 05:01 Assessment and Plan - Assessment and Plan 1) Right Scapula Fx - nonop 2) Left Distal Tibia/Fibula Fxs s/p exfix 3) Left 5th MT Fx 4) Left Cuboid Fx LLE: -NWB -elevate -ice RUE: -sling at all times -NWB Had long discussion today with patient and her family regarding treatment of her left ankle. Informed them that due to her swelling in her traumatic lacerations of the lateral ankle, a traditional incision with internal fixation is a somewhat high risk procedure due to potential wound complications and infection. Therefore, I gave him the option of proceeding with a hindfoot fusion. This option allows us to proceed with surgery sooner rather than later and also presents for a significantly lower risk of wound complications due to smaller incisions. The risks and the benefits of a hindfoot fusion were discussed with the patient and her family. The risks include bleeding, infection, posttraumatic arthritis, painful hardware, and loss of motion. The benefits however, include reduced pain, early ambulation, and decreased risk of wound complication. I informed the patient that if we did end up with any kind of wound complication due to the traditional fixation, it could result in amputation. The patient and her family are going to discuss their options and let us know later today which way they would like to proceed. If they decide to wait for traditional fixation, it would be at minimum another week before she is ready. We will decide later this morning how to proceed.
[2017-11-27] MEDS: Lidocaine 5% Patch T-DERMAL SCH (09:41)
[2017-11-27] MEDS: Meloxicam 7.5 MG Tablet PO SCH (09:42)
[2017-11-27] MEDS: Senna/Docusate Sodium 8.6/50 MG Tablet PO SCH ×2 (09:42→21:47)
[2017-11-27] MEDS: Calcium/Vitamin D 250/125 MG Tablet PO SCH ×3 (09:42→18:26)
[2017-11-27] MEDS: CALCIUM 500 MG PO SCH (09:42)
[2017-11-27] MEDS: Famotidine 20 MG Tablet PO SCH ×2 (09:42→21:47)
[2017-11-27] MEDS: Gabapentin 300 MG Capsule PO SCH ×3 (09:42→18:26)
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
[2017-11-27] MEDS ORDERED: Sodium Chlor 0.9% Inj 250 ML IV.SIG ONE (14:04)
[2017-11-27] MEDS ORDERED: Phenylephrine/NS 1000 MCG/10ML Syringe IV.PUSH ONE (14:04)
[2017-11-27] MEDS ORDERED: Lidocaine PF 1% Inj 5 ML Syringe INFILTRATN ONE (14:04)
[2017-11-27] MEDS ORDERED: Morphine Inj 4 MG/ML Vial IV.PUSH PRN (16:29)
[2017-11-27] MEDS ORDERED: Post-op Orders (for Pharmacy) OTHER STA (16:29)
--- NOTE | 2017-11-27 16:55 | XR ---
EXAM DATE: 11/27/2017 4:41 PM EDT AGE/SEX: 82 years / Female INDICATIONS: Open reduction internal fixation of the left ankle. CLINICAL DATA: This is the patient's subsequent encounter. Patient reports that signs and symptoms h ave been present for 2 weeks and indicates a pain score of Nonresponsive. MEDICAL/SURGICAL HISTORY: Non-responsive. Non-responsive. COMPARISON: [facility] – [place], FOOT COMPLETE LEFT 3V, 11/15/2017. . FINDINGS: Multiple fluoroscopic images of the left ankle demonstrate intramedullary dmitri placement through the c alcaneus, talus and distal tibia with compression screw fixation of the talus, tibia and calcaneus. C omminuted fracture of the distal fibula again noted. CONCLUSION: 1. Complex left ankle ORIF, as above. Electronically signed by: Zac Gilliam MD 11/27/2017 4:54 PM EDT
[2017-11-27] MEDS ORDERED: Vancomycin Inj 1 GM/200 ML PIGGYBACK IV.SIG SCH (17:00)
[2017-11-27] MEDS ORDERED: fentaNYL Citrate Inj 100 MCG/2 ML Ampul ONE (17:15)
[2017-11-27] MEDS ORDERED: Morphine Inj 4 MG/ML Vial IV.PUSH ONE ×3 (17:19→17:50)
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
[2017-11-27] MEDS: ceFAZolin Inj 2,000 MG in Sodium Chlor 0.9% Inj 80 ML IV.SIG SCH (21:59)
[2017-11-28] MEDS: Vancomycin Inj 1,000 MG in Sodium Chlor 0.9% Inj 250 ML IV.SIG SCH ×2 (02:43→15:00)
[2017-11-28] MEDS: ceFAZolin Inj 2,000 MG in Sodium Chlor 0.9% Inj 80 ML IV.SIG SCH ×3 (05:29→23:30)
[2017-11-28] MEDS: Enoxaparin Inj 40 MG/0.4 ML Syringe SQ SCH (05:30)
--- NOTE | 2017-11-28 07:05 | P.PNOP ---
Subjective Interval history: Resting comfortably. States that she has pain in her heel. She is in much better spirits. Physical Exam Vital signs: Vital Signs 11/27/17 08:00 11/27/17 12:00 11/27/17 17:07 Temperature 97.8 F 97.7 F 97.5 F L Pulse Rate 63 73 85 Respiratory Rate 16 18 12 Blood Pressure 151/70 H 149/70 H 106/62 Pulse Oximetry 97 98 96 11/27/17 17:15 11/27/17 17:30 11/27/17 17:45 Temperature 97.8 F Pulse Rate 68 80 74 Respiratory Rate 13 13 11 L Blood Pressure 97/56 L 123/63 117/62 Pulse Oximetry 97 97 98 11/27/17 18:04 11/27/17 18:42 11/27/17 20:00 Temperature 98.3 F 97.5 F L Pulse Rate 73 84 90 Respiratory Rate 20 16 Blood Pressure 125/74 124/66 Pulse Oximetry 95 99 11/27/17 22:17 11/27/17 23:49 11/28/17 00:00 Temperature 98.2 F Pulse Rate 76 82 Respiratory Rate 17 16 Blood Pressure 105/58 L Pulse Oximetry 96 11/28/17 01:45 11/28/17 03:14 11/28/17 03:52 Temperature Pulse Rate 74 Respiratory Rate 17 18 Blood Pressure Pulse Oximetry 11/28/17 04:00 Temperature 98.1 F Pulse Rate 86 Respiratory Rate 16 Blood Pressure 114/81 Pulse Oximetry 98 Intake & Output 11/27/17 11/28/17 11/28/17 18:59 06:59 18:59 Intake Total 0 / 0 450 / 450 Output Total 550 / 550 Balance 0 / 0 -100 / -100 Weight 69.8 kg Intake: IV 450 / 450 Vancomycin Inj 1,000 MG In NS 250 / 250 Inj 250 ML @ 250 mls/hr IV.SIG Q12H GEORGE Rx#:[id number] Ancef Inj 2,000 MG In NS Inj 80 200 / 200 ML @ 200 mls/hr IV.SIG Q8H GEORGE Rx#:[id number] Oral 0 / 0 Output: Urine 550 / 550 Other: # Voids 300 Date of Last Bowel Movement 11/25/17 # Bowel Movements 0 Narrative: Right upper extremity: Sling in place. Pain over scapula. No pain with elbow or wrist range of motion. Distally intact sensation. Full extension flexion of all fingers. Good capillary refills and distal pulses Left lower extremity: Clean dry dressings intact. Intact sensation in all toes with good capillary refills. No drainage noted - Urinary Catheter Management Indwelling Urethral Catheter Cath placed during this visit: no 500 Cath placed during this visit: yes, but has since been removed by the nurse Reason for continuing: Hourly intake/output Insertion date: 11/14/17 Removal date: 11/17/17 Results - Labs CBC & Chem 7: 11/20/17 05:01 11/20/17 05:01 - Imaging Impressions Ankle X-Ray 11/27/17 00:00 CONCLUSION: 1. Complex left ankle ORIF, as above. Assessment and Plan - Assessment and Plan 1) Right Scapula Fx - nonop 2) Left Distal Tibia/Fibula fracture status post removal of external fixation and hindfoot fusion POD 1 3) Left 5th MT Fx 4) Left Cuboid Fx LLE: -NWB -elevate -Maintain splint RUE: -sling at all times -NWB Case management for rehab placement. If being transferred to [facility], she is orthopedically cleared. Otherwise, we will plan for discharge tomorrow to rehabilitation center. Follow-up appointment with Dr. Hampton or KAMALJIT in 2 weeks
[2017-11-28 08:19] LABS: Baso % (Auto) 0.1 % (0.0-2.0); Hematocrit 25.3 % (35.0-46.0); Hemoglobin 8.5 gm/dL (11.6-15.3); Lymph # (Auto) 0.6 th/mm3 (1.0-4.8); Lymph % (Auto) 5.9 % (9.0-44.0); Mean Corpuscular HGB Conc 33.8 % (32.0-36.0); Mean Corpuscular Hemoglobin 33.4 pg (27.0-34.0); Mean Corpuscular Volume 98.7 fL (80.0-100.0); Mean Platelet Volume 7.8 fL (7.0-11.0); Mono # (Auto) 0.4 th/mm3 (0.0-0.9); Mono % (Auto) 4.1 % (0.0-8.0); Neut # (Auto) 8.9 th/mm3 (1.8-7.7); Neut % (Auto) 89.9 % (16.0-70.0); Platelet Count 298 th/mm3 (150-450); Red Blood Count 2.56 mil/mm3 (4.00-5.30); Red Cell Distribution Width 13.7 % (11.6-17.2); White Blood Count 9.9 th/mm3 (4.0-11.0)
[2017-11-28 08:41] LABS: Calcium 8.1 mg/dL (8.5-10.1); Carbon Dioxide 25.7 meq/L (21.0-32.0)
[2017-11-28] MEDS: Famotidine 20 MG Tablet PO SCH ×2 (09:10→20:21)
[2017-11-28] MEDS: Calcium/Vitamin D 250/125 MG Tablet PO SCH ×3 (09:10→17:00)
[2017-11-28] MEDS: Lidocaine 5% Patch T-DERMAL SCH (09:11)
[2017-11-28] MEDS: Meloxicam 7.5 MG Tablet PO SCH (09:11)
[2017-11-28] MEDS: Senna/Docusate Sodium 8.6/50 MG Tablet PO SCH ×2 (09:15→20:22)
[2017-11-28] MEDS: Gabapentin 300 MG Capsule PO SCH ×3 (09:15→17:00)
[2017-11-28] MEDS: CALCIUM 500 MG PO SCH (09:15)
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
[2017-11-29] MEDS: ceFAZolin Inj 2,000 MG in Sodium Chlor 0.9% Inj 80 ML IV.SIG SCH ×2 (05:33→14:50)
[2017-11-29] MEDS: Enoxaparin Inj 40 MG/0.4 ML Syringe SQ SCH (05:35)
--- NOTE | 2017-11-29 06:41 | P.PNOP ---
Subjective Interval history: Still complains of some heel pain. Otherwise continuing to progress well Physical Exam Vital signs: Vital Signs 11/28/17 08:00 11/28/17 12:00 11/28/17 16:00 Temperature 98.4 F 98.1 F 98.1 F Pulse Rate 80 68 68 Respiratory Rate 16 18 18 Blood Pressure 102/52 L 101/55 L 92/53 L Pulse Oximetry 98 95 95 11/28/17 20:00 11/28/17 20:52 11/28/17 23:49 Temperature 98.5 F Pulse Rate 73 68 Respiratory Rate 17 18 Blood Pressure 99/56 L Pulse Oximetry 96 11/29/17 00:00 11/29/17 04:00 11/29/17 04:01 Temperature 98.5 F 98.2 F Pulse Rate 66 69 69 Respiratory Rate 17 17 Blood Pressure 118/65 141/81 H Pulse Oximetry 91 L 93 L Intake & Output 11/28/17 11/28/17 11/29/17 06:59 18:59 06:59 Intake Total 450 / 450 1440 / 1440 100 / 100 Output Total 550 / 550 Balance -100 / -100 1440 / 1440 100 / 100 Weight 69.8 kg Intake: IV 450 / 450 350 / 350 100 / 100 Vancomycin Inj 1,000 MG In NS 250 / 250 250 / 250 Inj 250 ML @ 250 mls/hr IV.SIG Q12H GEORGE Rx#:[id number] Ancef Inj 2,000 MG In NS Inj 80 200 / 200 100 / 100 100 / 100 ML @ 200 mls/hr IV.SIG Q8H GEORGE Rx#:[id number] Oral 1090 / 1090 Output: Urine 550 / 550 Other: # Voids 3 Date of Last Bowel Movement 11/25/17 11/25/17 Narrative: Right upper extremity: Sling in place. Minimal pain with range of motion of the elbow wrist and fingers. Mild tenderness with movement of shoulder. Intact sensation of the radial ulnar median nerve distributions with good capillary refills. Left lower extremity: Splint intact. Clean dry dressings intact. Intact sensation all toes with good capillary refills. - Urinary Catheter Management Indwelling Urethral Catheter Cath placed during this visit: no 500 Cath placed during this visit: yes, but has since been removed by the nurse Reason for continuing: Hourly intake/output Insertion date: 11/14/17 Removal date: 11/17/17 Results - Labs CBC & Chem 7: 11/28/17 07:35 11/28/17 07:35 Laboratory Results - last 24 hr 11/28/17 11/28/17 07:35 07:35 WBC 9.9 RBC 2.56 L Hgb 8.5 L Hct 25.3 L MCV 98.7 MCH 33.4 MCHC 33.8 RDW 13.7 Plt Count 298 D MPV 7.8 Neut % (Auto) 89.9 H Lymph % (Auto) 5.9 L [place] % (Auto) 4.1 Eos % (Auto) 0.0 Baso % (Auto) 0.1 Neut # (Auto) 8.9 H Lymph # (Auto) 0.6 L [place] # (Auto) 0.4 Eos # (Auto) 0.0 Baso # (Auto) 0.0 WBC Differential . Differential Comment Auto diff final Sodium 140 Potassium 4.0 Chloride 106 Carbon Dioxide 25.7 Anion Gap 8 BUN 24 H Creatinine 0.82 Estimated GFR 66 L Random Glucose 93 Calcium 8.1 L Assessment and Plan - Assessment and Plan 1) Right Scapula Fx - nonop 2) Left Distal Tibia/Fibula fracture status post removal of external fixation and hindfoot fusion POD 1 3) Left 5th MT Fx 4) Left Cuboid Fx LLE: -NWB -elevate -Maintain splint RUE: -sling at all times -NWB Case management for rehab placement. Orthopedically cleared for discharge to rehab Follow-up appointment with Dr. Hampton or PA in 2 weeks
[2017-11-29] MEDS: Meloxicam 7.5 MG Tablet PO SCH (09:54)
[2017-11-29] MEDS: Senna/Docusate Sodium 8.6/50 MG Tablet PO SCH ×2 (09:54→22:40)
[2017-11-29] MEDS: Gabapentin 300 MG Capsule PO SCH ×3 (09:55→19:43)
[2017-11-29] MEDS: Calcium/Vitamin D 250/125 MG Tablet PO SCH ×3 (09:55→19:43)
[2017-11-29] MEDS: Famotidine 20 MG Tablet PO SCH ×2 (09:55→22:40)
[2017-11-29] MEDS: Lidocaine 5% Patch T-DERMAL SCH (09:56)
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
[2017-11-29] MEDS: CALCIUM 500 MG PO SCH (14:52)
[2017-11-30] MEDS: Enoxaparin Inj 40 MG/0.4 ML Syringe SQ SCH (05:46)
--- NOTE | 2017-11-30 07:10 | P.PNOP ---
Subjective Interval history: Continuing to make slow improvements. Physical Exam Vital signs: Vital Signs 11/29/17 08:00 11/29/17 12:00 11/29/17 16:00 Temperature 98.5 F 98 F Pulse Rate 71 86 74 Respiratory Rate 18 18 Blood Pressure 133/61 131/66 Pulse Oximetry 93 L 97 11/29/17 20:00 11/29/17 23:11 11/30/17 00:00 Temperature 98.3 F 98.4 F Pulse Rate 79 76 Respiratory Rate 18 18 18 Blood Pressure 125/58 L 141/64 H Pulse Oximetry 95 94 L 11/30/17 01:44 11/30/17 04:00 Temperature 98.5 F Pulse Rate 79 Respiratory Rate 16 18 Blood Pressure 138/63 Pulse Oximetry 94 L Intake & Output 11/29/17 11/30/17 11/30/17 18:59 06:59 18:59 Intake Total 1100 / 1100 160 / 160 Output Total 400 / 400 Balance 1100 / 1100 -240 / -240 Weight 69.8 kg Intake: IV 1100 / 1100 LR 1000 mL Inj 1,000 ML @ 30 1000 / 1000 mls/hr IV.SIG .Q24H GEORGE Rx#: [id number] Ancef Inj 2,000 MG In NS Inj 80 100 / 100 ML @ 200 mls/hr IV.SIG Q8H GEORGE Rx#:[id number] Oral 160 / 160 Output: Urine 400 / 400 Other: Date of Last Bowel Movement 11/25/17 Narrative: Right upper extremity: Sling in place. Minimal pain with range of motion of the elbow wrist and fingers. Mild tenderness with movement of shoulder. Intact sensation of the radial ulnar median nerve distributions with good capillary refills. Left lower extremity: Splint intact. Clean dry dressings intact. Intact sensation all toes with good capillary refills. - Urinary Catheter Management Indwelling Urethral Catheter Cath placed during this visit: no 500 Cath placed during this visit: yes, but has since been removed by the nurse Reason for continuing: Hourly intake/output Insertion date: 11/14/17 Removal date: 11/17/17 Results - Labs CBC & Chem 7: 11/28/17 07:35 11/28/17 07:35 - Procedures 11/14: I&D of LEFT tibia, closed reduction LEFT tibia, Ex-fix LEFT tibia. 11/27: ORIF to left distal tibia fracture, Hindfoot (fusion) arthrodesis of the tibiotalocalcaneal joints. Assessment and Plan - Assessment and Plan 1) Right Scapula Fx - nonop 2) Left Distal Tibia/Fibula fracture status post removal of external fixation and hindfoot fusion POD 3 3) Left 5th MT Fx 4) Left Cuboid Fx LLE: -NWB -elevate -Maintain splint RUE: -sling at all times -NWB Case management for rehab placement. Orthopedically cleared for discharge to rehab Follow-up appointment with Dr. Hampton or KAMALJIT in 2 weeks
[2017-11-30] MEDS: Famotidine 20 MG Tablet PO SCH ×2 (11:06→23:41)
[2017-11-30] MEDS: Calcium/Vitamin D 250/125 MG Tablet PO SCH ×3 (11:08→18:48)
[2017-11-30] MEDS: Gabapentin 300 MG Capsule PO SCH ×3 (11:08→18:48)
[2017-11-30] MEDS: Meloxicam 7.5 MG Tablet PO SCH (11:08)
[2017-11-30] MEDS: Lidocaine 5% Patch T-DERMAL SCH (11:08)
[2017-11-30] MEDS: Senna/Docusate Sodium 8.6/50 MG Tablet PO SCH ×2 (11:09→23:41)
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
[2017-11-30] MEDS: CALCIUM 500 MG PO SCH (14:54)
[2017-12-01] MEDS: Enoxaparin Inj 40 MG/0.4 ML Syringe SQ SCH (06:17)
[2017-12-01] MEDS: Famotidine 20 MG Tablet PO SCH ×2 (09:58→21:26)
[2017-12-01] MEDS: Calcium/Vitamin D 250/125 MG Tablet PO SCH ×3 (09:58→17:10)
[2017-12-01] MEDS: Senna/Docusate Sodium 8.6/50 MG Tablet PO SCH ×2 (09:59→21:31)
[2017-12-01] MEDS: Meloxicam 7.5 MG Tablet PO SCH (09:59)
[2017-12-01] MEDS: Gabapentin 300 MG Capsule PO SCH ×3 (10:00→17:10)
[2017-12-01] MEDS: Lidocaine 5% Patch T-DERMAL SCH (10:01)
[2017-12-01] MEDS: CALCIUM 500 MG PO SCH (10:01)
[2017-12-01] MEDS: Acetaminophen 325 MG Tablet PO PRN ×2 (10:11→17:09)
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
--- NOTE | 2017-12-01 11:15 | P.PNOP ---
Subjective Interval history: Patient comfortable. Pain controlled. Spouse present. Physical Exam Vital signs: Vital Signs 11/30/17 11:17 11/30/17 11:36 11/30/17 11:47 Temperature Pulse Rate Respiratory Rate 18 18 18 Blood Pressure Pulse Oximetry 11/30/17 12:00 11/30/17 12:04 11/30/17 20:00 Temperature 98 F 98.8 F Pulse Rate 67 79 92 H Respiratory Rate 18 18 Blood Pressure 142/65 H Pulse Oximetry 96 98 12/01/17 00:00 12/01/17 04:00 12/01/17 08:00 Temperature 97.7 F 98.2 F 98.1 F Pulse Rate 76 81 76 Respiratory Rate 18 18 14 Blood Pressure 106/61 127/60 143/64 H Pulse Oximetry 94 L 94 L 96 Intake & Output 11/30/17 12/01/17 12/01/17 18:59 06:59 18:59 Intake Total 300 / 300 240 / 240 Output Total 800 / 800 Balance 300 / 300 -560 / -560 Intake: Oral 300 / 300 240 / 240 Output: Urine 800 / 800 Other: Date of Last Bowel Movement 11/25/17 Narrative: RUE: sling in place distally motor, neuro, sensory intact LLE: dressing C/D/I splint intact + sensation minimum movement of toes - Urinary Catheter Management Indwelling Urethral Catheter Cath placed during this visit: no 500 Cath placed during this visit: yes, but has since been removed by the nurse Reason for continuing: Hourly intake/output Insertion date: 11/14/17 Removal date: 11/17/17 Results - Labs CBC & Chem 7: 11/28/17 07:35 11/28/17 07:35 - Procedures 11/14: I&D of LEFT tibia, closed reduction LEFT tibia, Ex-fix LEFT tibia. 11/27: ORIF to left distal tibia fracture, Hindfoot (fusion) arthrodesis of the tibiotalocalcaneal joints. Assessment and Plan - Assessment and Plan 1) Right Scapula Fx - nonop 2) Left Distal Tibia/Fibula fracture status post removal of external fixation and hindfoot fusion POD 4 3) Left 5th MT Fx 4) Left Cuboid Fx LLE: -NWB -elevate -Maintain splint RUE: -sling at all times -NWB Case management for rehab placement. Orthopedically cleared for discharge to rehab Follow-up appointment with Dr. Hampton or PA in 2 weeks
[2017-12-02] MEDS: Enoxaparin Inj 40 MG/0.4 ML Syringe SQ SCH (05:44)
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
[2017-12-02] MEDS: Senna/Docusate Sodium 8.6/50 MG Tablet PO SCH ×2 (09:13→21:41)
[2017-12-02] MEDS: Meloxicam 7.5 MG Tablet PO SCH (09:13)
[2017-12-02] MEDS: Calcium/Vitamin D 250/125 MG Tablet PO SCH ×3 (09:13→17:16)
[2017-12-02] MEDS: Gabapentin 300 MG Capsule PO SCH ×3 (09:14→17:16)
[2017-12-02] MEDS: Famotidine 20 MG Tablet PO SCH ×2 (09:14→21:41)
[2017-12-02] MEDS: CALCIUM 500 MG PO SCH (09:20)
[2017-12-02] MEDS: Lidocaine 5% Patch T-DERMAL SCH (09:23)
--- NOTE | 2017-12-02 11:46 | P.PNOP ---
Subjective Interval history: Patient c/o left ankle pain. Physical Exam Vital signs: Vital Signs 12/01/17 12:00 12/01/17 16:00 12/01/17 20:00 Temperature 98.1 F 98.6 F 98.3 F Pulse Rate 72 81 79 Respiratory Rate 15 14 17 Blood Pressure 113/56 L 113/57 L 144/66 H Pulse Oximetry 96 94 L 95 12/02/17 00:00 12/02/17 00:45 12/02/17 04:00 Temperature 98.0 F 98.3 F Pulse Rate 74 70 Respiratory Rate 16 18 17 Blood Pressure 113/66 109/56 L Pulse Oximetry 93 L 94 L 12/02/17 08:00 Temperature 98.2 F Pulse Rate 70 Respiratory Rate 18 Blood Pressure 122/57 L Pulse Oximetry 93 L Intake & Output 12/01/17 12/02/17 12/02/17 18:59 06:59 18:59 Output Total 250 / 250 Balance -250 / -250 Weight 70 kg Output: Urine 250 / 250 Other: # Voids 3 1 Date of Last Bowel Movement 12/01/17 12/01/17 # Bowel Movements 1 1 Narrative: Left ankle dressing and splint intact good movement of toes +sensation RUE: sling in place distally motor, neuro, and sensory intact - Urinary Catheter Management Indwelling Urethral Catheter Cath placed during this visit: no 500 Cath placed during this visit: yes, but has since been removed by the nurse Reason for continuing: Hourly intake/output Insertion date: 11/14/17 Removal date: 11/17/17 Results - Labs CBC & Chem 7: 11/28/17 07:35 11/28/17 07:35 - Procedures 11/14: I&D of LEFT tibia, closed reduction LEFT tibia, Ex-fix LEFT tibia. 11/27: ORIF to left distal tibia fracture, Hindfoot (fusion) arthrodesis of the tibiotalocalcaneal joints. Assessment and Plan - Assessment and Plan 1) Right Scapula Fx - nonop 2) Left Distal Tibia/Fibula fracture status post removal of external fixation and hindfoot fusion POD 5 3) Left 5th MT Fx 4) Left Cuboid Fx LLE: -NWB -elevate -Maintain splint RUE: -sling at all times -NWB Patient will be going to [facility] tomorrow. Orthopedically cleared for discharge to rehab Follow-up appointment with Dr. Hampton or PA in 2 weeks
[2017-12-02] MEDS: Acetaminophen 325 MG Tablet PO PRN (12:55)
[2017-12-03] MEDS: Enoxaparin Inj 40 MG/0.4 ML Syringe SQ SCH (05:35)
[2017-12-03 05:44] VITALS: TEMP 98.1
[2017-12-03 08:51] VITALS: BP 132/61; PULSE 65; RESP 16; O2SAT 97
[2017-12-03] MEDS: Acetaminophen 325 MG Tablet PO PRN ×2 (09:12)
[2017-12-03] MEDS: Meloxicam 7.5 MG Tablet PO SCH (09:12)
[2017-12-03] MEDS: Famotidine 20 MG Tablet PO SCH (09:12)
[2017-12-03] MEDS: Gabapentin 300 MG Capsule PO SCH (09:12)
[2017-12-03] MEDS: Calcium/Vitamin D 250/125 MG Tablet PO SCH (09:13)
[2017-12-03] MEDS: CALCIUM 500 MG PO SCH (09:14)
[2017-12-03] MEDS: Senna/Docusate Sodium 8.6/50 MG Tablet PO SCH (09:14)
[2017-12-03] MEDS: Lidocaine 5% Patch T-DERMAL SCH (09:15)
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
== END 2017-12-03 09:30 ==
LOC: NEPI 09:47 → EDBD 11:29 → NEDA 11:29 → N03 14:33 → N06 11-15 17:59
PROVIDERS: ADMIT Surgery; ATTEND Surgery
PROC: ORIFTIB (2017-11-27 14:04)